=== PATIENT | female | born 1980 | race Caucasian/White ===

== ENCOUNTER 2025-05-07 18:39 | Emergency (ER) | payer OTHER, SELFPAY ==
[2025-05-07 18:43] VITALS: BP 178/90; PULSE 82; RESP 16; TEMP 36.8; O2SAT 100; BMI 23.3
--- NOTE | 2025-05-07 19:21 | CT_ITS ---
PROCEDURE INFORMATION: Exam: CT Maxillofacial With Contrast Exam date and time: 05/07/2025 8:43 PM Age: 45 years old Clinical indication: Jaw pain; Additional info: Trismus, right maxillary sinus pain, abscess? TECHNIQUE: Imaging protocol: Computed tomography of the face with contrast. Radiation optimization: All CT scans at this facility use at least one of these dose optimization techniques: automated exposure control; mA and/or kV adjustment per patient size (includes targeted exams where dose is matched to clinical indication); or iterative reconstruction. Contrast material: ISOVUE; Contrast volume: 75 ml; Contrast route: IV; COMPARISON: No relevant prior studies available. FINDINGS: Brain: No acute intracranial findings. Paranasal sinuses: Mucosal thickening in the maxillary sinuses suggesting mild chronic sinus inflammatory disease. No fluid levels. The other paranasal sinuses are clear. Orbital cavities: No acute intraorbital findings. Mastoid air cells: Partially opacified right inferior mastoid air cells suggesting mild mastoiditis. No gross coalescence. Left mastoid air cells are clear. Teeth: Severe multifocal dental caries. There is periodontal bone resorption associated with severe dental caries in the right maxillary molar distribution concerning for root abscess, with 9 x 13 x 6 mm rim enhancing subperiosteal abscess at the adjacent lateral maxillary margin. Salivary glands: The parotid and submandibular glands are unremarkable. Pharynx: The parapharyngeal spaces are unremarkable. The nasopharynx is unremarkable. The oropharynx is unremarkable. The hypopharynx is unremarkable. Larynx: Normal epiglottis. Visualized larynx is unremarkable. Thyroid: Partially visualized mixed density nodule in the right thyroid lobe measuring at least 1.5 cm. Nonemergent thyroid ultrasound assessment recommended unless previously assessed. Trachea: The visualized proximal tracheal airway is unremarkable. Lymph nodes: Mildly enlarged bilateral level 1B and level 2A cervical nodes. No constance abscess. Bones: No facial fractures. TMJs are well aligned. The infratemporal fossae and market research analyst spaces are unremarkable. Soft tissues: Mild subcutaneous soft tissue swelling in the lower right facial region suggesting mild regional cellulitis. No deep extension. No hematoma. Other findings: No foreign body. IMPRESSION: 1. Severe multifocal dental caries, with root abscess and small lateral subperiosteal abscess in the right maxillary molar distribution. 2. Mild adjacent lower right facial cellulitis. No deep extension. 3. Mildly enlarged bilateral upper cervical nodes. No constance abscess. 4. Chronic maxillary sinusitis and mild right mastoiditis. 5. Partially visualized right thyroid nodule measuring at least 1.5 cm. Nonemergent thyroid ultrasound assessment recommended unless previously assessed. COMMENTS: Consistent with the [employer]'s Incidental Findings Committee white paper ([employer]iol 2015): In patients aged 35 years and older with an incidental thyroid nodule equal to or greater than 1.[address], MRI or extrathyroidal US, further evaluation with dedicated thyroid US is recommended for patients with normal life expectancy and without comorbidities. For smaller nodules without suspicious features, no further evaluation or follow up is recommended.
--- NOTE | 2025-05-07 19:23 | ED_ITS ---
Discharge Plan Disposition Patient Disposition: Home, Self-Care Prescriptions Prescriptions: New amoxicillin-pot clavulanate 875-125 mg tablet 1 tab PO BID 10 Days Qty: 20 0RF Referrals Follow up/Referrals: Provider,Referral, MD [Primary Care Provider, Medical] - See instructions Activity Restrictions/Add. Instructions Additional Instructions/Restrictions: I encourage you to follow-up with dentistry closely as you do have a dental abscess. I am giving you a course of antibiotics. I encourage you to take this as prescribed. I do encourage you to take 800 mg of ibuprofen as well as 1 g of Tylenol every 6 hours as needed to help with pain over the next 2 to 3 days. You are also being given information for the [facility] walk-in dentistry clinic. Clinical Impressions Clinical Impression: Dental abscess, Thyroid nodule incidentally noted on imaging study Print Language Print Language: Tamaz[place] Discharge ED Provider: Heriberto Scott General Adult HPI General Chief complaint: Dental/Oral Stated complaint: right jaw pain Time Seen by Provider: 05/07/25 19:00 Mode of Arrival: Ambulatory Source of Information: Patient Description of Symptoms (Recalled from ER Triage Doc. by RN): nichelle presents to the ED for right sided facial swelling. merle believes she has a dental abcess. patient noticed the swelling yesterday. patient rates it 4/10. History of Present Illness HPI narrative: Elo Sánchez is a 45F with a history of lupus who presents to the Emergency Department for complaints of right jaw pain for the past 2 days and subjective fevers. Patient states that she feels like she cannot open her mouth all the way due to pain and restriction of her right jaw. She reports pain along the right upper maxillary area. She reports that her voice appears hoarse. Patient reports that she has been taking ibuprofen without significant relief. She has not been seen by dentist yet. Related Data Previous Rx's ?Medication ?Instructions ?Recorded amoxicillin 875 mg-potassium 1 tab PO BID 10 days #20 tabs 05/07/25 clavulanate 125 mg tablet Allergies Allergy/AdvReac Type Severity Reaction Status Date / Time hydroxychloroquine (From Allergy Difficulty Verified 05/07/25 18:49 Plaquenil) Breathing Latex, Natural Rubber Allergy Rash Verified 05/07/25 18:49 PFSH PFS Disclaimer: The information contained in this section may have been updated after the patient was seen, as this information can be updated by other users. Social History Smoking Status: Current every day smoker alcohol intake: never current occupational status: employed Travel in the last 8 weeks?: None ROS Obtained: Yes Systems reviewed as appropriate & no additional complaints except as documented Physical Exam General General appearance: alert and in no apparent distress Head Head exam: atraumatic Eye Eye exam: Present normal appearance ENT ENT exam: Present normal external ear exam and other (Tenderness over the right TMJ, poor dentition throughout with multiple dental caries. Mild swelling in the maxillary gumline near the molars. No tonsillar swelling, uvula midline.) Neck Neck exam: Present full ROM Chest Chest inspection: Present symmetric chest wall rise Respiratory Respiratory exam: Present normal lung sounds bilaterally; Absent respiratory distress Cardiovascular Cardiovascular exam: Present regular rate and normal rhythm Abdominal Exam Abdominal exam: Present soft; Absent tenderness or guarding Extremities Exam Extremities exam: Present normal inspection Back Exam Back exam: Present normal inspection Neurological Exam Neurological exam: Present alert and oriented X3 Psychiatric Psychiatric exam: Present normal affect Skin Skin exam: Present warm and dry Medical Decision Making Medical Records Screening: Per USPSTF and CDC recommendations, given the prevalence of disease in our region, it is our hospital?s policy to screen for HIV and viral Hepatitis for all patients aged 18 and over and those with ongoing risk factors. Fabian Inquiry Pt receiving controlled substance: No Vital Signs: 05/07/25 18:43 05/07/25 22:29 Temperature 98.2 F 98.0 F Temperature Source Temporal Artery Scan Oral Pulse Rate 84 Pulse Rate [Left Radial] 82 Respiratory Rate 16 16 Blood Pressure 115/70 Blood Pressure [Left Arm] 178/90 H Blood Pressure Mean [Left Arm] 119 Blood Pressure Source Automatic Cuff Blood Pressure Source [Left Arm] Automatic Cuff Blood Pressure Position Sitting Blood Pressure Position [Left Arm] Sitting 02 Sat by Pulse Oximetry 100 Oxygen Delivery Method Room Air Room Air Lab Data Lab Results 05/07/25 19:35: WBC 10.4, RBC 3.82 L, Hgb 11.1 L, Hct 34.3 L, MCV 89.8, MCH 29.1, MCHC 32.4, RDW 12.7, Plt Count 383, MPV 10.3, Neut % (Auto) 71.0, Lymph % (Auto) 19.0, [place] % (Auto) 6.4, Eos % (Auto) 2.7, Baso % (Auto) 0.6, Neut # (Auto) 7.4, Lymph # (Auto) 2.0, [place] # (Auto) 0.7, Eos # (Auto) 0.3, Baso # (Auto) 0.1, Sodium 141, Potassium 3.6, Chloride 106, Carbon Dioxide 28, Anion Gap 10.6, BUN 13, Creatinine 0.50 L, Estimated Creat Clear 151, Estimated GFR 135, Est GFR ( Amer) 163, Glucose 108 H, Calcium 8.7, Total Bilirubin 0.3, AST 20, ALT 9 L, Alkaline Phosphatase 68, Total Protein 7.0, Albumin 4.0, Globulin 3.0, Albumin/Globulin Ratio 1.3, Serum HCG, Qual Negative 05/07/25 19:35 05/07/25 19:35 Orders (Tests/Meds): ED MEDICATIONS Discontinued Medications Generic Name Dose Route Start Last Admin Trade Name Freq PRN Reason Stop Dose Admin Amoxicillin/Clavulanate Potassium 1 each 05/07/25 20:38 05/07/25 20:55 Amoxicillin/Clavulanate Potassium 875/125mg Tablet PO 05/07/25 20:39 1 each ONCE ONE Administration Iopamidol 75 ml 05/07/25 20:42 05/07/25 20:43 Iopamidol-370 (76%);100ml Bottle IV 05/07/25 20:43 75 ml ONCE ONE Administration Morphine Sulfate 4 mg 05/07/25 19:21 05/07/25 19:43 Morphine 4mg/Ml Syringe IV 05/07/25 19:22 4 mg ONCE ONE Administration Sodium Chloride 10 ml 05/07/25 20:42 05/07/25 20:43 Sodium Chloride 0.9% 10ml Syr (Rad Only) IV 06/06/25 20:41 10 ml NEEDED PRN Administration Maintain IV Site ORDERS Category Date Time Status CT facial bones w con Stat Cat Scan 05/07/25 19:21 Completed CBC w/Auto Diff [Complete Blood Count Auto Diff] Stat Lab 05/07/25 19:35 Completed CMP [Comprehensive Metabolic Panel] Stat Lab 05/07/25 19:35 Completed Serum [HCG Qualitative, Serum] Stat Lab 05/07/25 19:35 Completed Medical Decision Narrative: Elo Sánchez is a 45F with a history of lupus who presents to the Emergency Department for complaints of right jaw pain for the past 2 days and subjective fevers. Patient states that she feels like she cannot open her mouth all the way due to pain and restriction of her right jaw. She reports pain along the right upper maxillary area. She reports that her voice appears hoarse. Patient reports that she has been taking ibuprofen without significant relief. She has not been seen by dentist yet. On arrival, per radiology, patient is hypertensive with blood pressure 178/90, heart rate within normal limits, afebrile, breathing comfortably on room air with oxygen saturation 100% SpO2. Physical exam, stated above, reveals a nontoxic-appearing female who is maintaining her airway appropriately. She is tolerating her secretions well. She has some mild tenderness over the right TMJ. Some trismus is present. She has poor dentition throughout with multiple dental caries and erosion of multiple teeth. She has some swelling of the gumline in the right maxillary mandibular region. Tonsils without swelling or exudate. Uvula is midline. Mallampati score of 1. Patient does have tenderness over the right maxillary sinus area as well as right TMJ. Differential diagnosis includes, but is not limited to: Dental abscess, sinusitis, abscess, TMJ syndrome, among others. the most morbid conditions were considered and workup was based on these. To rule out abscess, CT imaging of the face with IV contrast was ordered. I have low concern for peritonsillar abscess or retropharyngeal abscess at this time. Laboratory workup is grossly unremarkable and nonactionable. CT imaging was interpreted by me personally consistent with radiology interpretation. Patient noted to have multiple severe dental caries with root abscess and small lateral subperiosteal abscess in the right maxillary molar distribution. Mild adjacent right lower facial cellulitis with no deep extension. Patient noted to have enlarged cervical lymph nodes. Incidentally noted 1.5 cm thyroid nodule. See final radiology report for details. Given these findings, patient's symptomatology is best explained by her dental abscess. Will give a dose of Augmentin here in the emergency department and sent prescription into the pharmacy. I stressed the importance of following up with dentistry closely and gave recommendations to the [facility] dentistry walk-in clinic. Patient instructed to take high-dose ibuprofen and Tylenol over the next 2 to 3 days until she is able to get in with a dentist for definitive management. All questions were answered. She demonstrated understanding and was agreement this plan. She was then discharged from the emergency department in stable condition. Critical Care Critical Care Time Critical Care Time: No
[2025-05-07] MEDS: MORPHINE 4MG/ML SYRINGE 4 MG IV (19:43)
[2025-05-07 19:55] LABS: Hematocrit 34.3 % (37.0-47.0); Hemoglobin 11.1 g/dL (12.2-16.2); Immature Granulocytes % 0.3 %; Mean Corpuscular HGB Conc 32.4 g/dL (31.8-35.4); Mean Corpuscular Hemoglobin 29.1 pg (27.0-31.2); Mean Corpuscular Volume 89.8 fl (81-99); Nucleated Red Blood Cells % 0 %; Platelet Count 383 K/mm3 (142-424); Red Blood Count 3.82 M/mm3 (4.20-5.40); Red Cell Distribution Width-SD 41.7 fL; White Blood Count 10.4 K/mm3 (4.8-10.8)
[2025-05-07 20:18] LABS: HCG Qualitative, Serum Negative (Negative)
[2025-05-07 20:28] LABS: Albumin Level 4.0 g/dl (3.5-5.0); Chloride 106 mmol/L (98-107); Potassium 3.6 mmoL/L (3.5-5.1); Sodium 141 mmol/L (136-145)
[2025-05-07 20:31] LABS: Alanine Aminotransferase 9 U/L (12-78); Albumin/Globulin Ratio 1.3 (1.1-1.8); Alkaline Phosphatase 68 U/L (38-126); Anion Gap 10.6 mEq/L (5-15); Aspartate Amino Transferase 20 U/L (14-36); Bilirubin,Total 0.3 mg/dl (0.2-1.3); Blood Urea Nitrogen 13 mg/dl (7-17); Carbon Dioxide 28 mmol/L (22.0-30.0); Creatinine Clearance Estimated 151 mL/min (50-200); Creatinine,Serum 0.50 mg/dl (0.52-1.04); Estimated Glomerular Filt Rate 135 ml/min (>60); GFR (African American) 163 ML/MIN (>60); Globulin 3.0 g/dL (1.3-3.2); Total Protein,Serum 7.0 g/dl (6.3-8.2)
[2025-05-07 20:32] LABS: Calcium 8.7 mg/dl (8.4-10.2); Glucose 108 mg/dl (74-100)
[2025-05-07] MEDS: SODIUM CHLORIDE 0.9% 10ML SYR (RAD ONLY) 10 ML IV (20:43)
[2025-05-07] MEDS: IOPAMIDOL-370 (76%);100ML BOTTLE 75 ML IV (20:43)
[2025-05-07] MEDS: AMOXICILLIN/CLAVULANATE POTASSIUM 875/125MG TABLET 1 EACH PO (20:55)
[2025-05-07 22:29] VITALS: BP 115/70; PULSE 84; RESP 16; TEMP 36.7; O2SAT 100
== END 2025-05-07 22:30 | disposition home or self-care (01) ==
PROVIDERS: Emergency Provider Student in an Organized Health Care Education/Training Program
DX: L03.211 Cellulitis of face (principal); R59.0 Localized enlarged lymph nodes; K04.7 Periapical abscess without sinus; R68.84 Jaw pain; E04.1 Nontoxic single thyroid nodule; F17.210 Nicotine dependence, cigarettes, uncomplicated
CPT/HCPCS: 70487; 80053; 84703; 85025; 96374; 99283; 99284; J2270; Q9967